=== PATIENT | female | born 1950 | race Caucasian/White ===

== ENCOUNTER 2016-09-02 04:48 | Emergency (ER) | payer OTHER ==
[~2016-09-02] VITALS: Ht 170.2 cm; Wt 90.9 kg
[2016-09-02 04:50] VITALS: BP 113/87
== END 2016-09-02 05:50 | disposition home or self-care (01) ==
LOC: EMS 04:49
DX: J02.8 Acute pharyngitis due to other specified organisms (principal)
CPT/HCPCS: 99281

== ENCOUNTER 2017-05-18 18:48 | Emergency (ER) | payer OTHER ==
[~2017-05-18] VITALS: Ht 170.2 cm; Wt 77.3 kg
[2017-05-18 20:36] VITALS: BP 138/71
== END 2017-05-18 20:37 | disposition home or self-care (01) ==
LOC: EMS 18:49
DX: H66.91 Otitis media, unspecified, right ear (principal); R03.0 Elevated blood-pressure reading, without diagnosis of hypertension
CPT/HCPCS: 99283